=== PATIENT | female | born 1985 | race Caucasian/White ===

== ENCOUNTER 2021-06-18 00:20 | Inpatient (IN) ==
[2021-06-18] MEDS ORDERED: MAGNESIUM SULF RIDER 2 GM/50 ML PREMIX IV PRN (02:44)
[2021-06-18] MEDS ORDERED: ONDANSETRON 4 MG/2 ML VIAL IV PRN (02:44)
[2021-06-18] MEDS ORDERED: hydrALAZINE 20 MG/1 ML VIAL IV PRN (02:44)
[2021-06-18] MEDS ORDERED: GLUCAGON 1 MG VIAL IM PRN (02:44)
[2021-06-18] MEDS ORDERED: MAGNESIUM SULF RIDER 4 GM/100 ML PREMIX IV PRN (02:44)
[2021-06-18] MEDS ORDERED: DEXTROSE 10% 250 ML BAG IV PRN (03:52)
[2021-06-18 05:16] LABS: Bacteria,Urine Occasional /HPF (Few); Mucus,Urine Occasional /LPF (Occasional); RBC,Urine 1 /HPF (0-4); Squamous Epithelial Cell,Urine Occasional /HPF (0-10); Urine Appearance Clear (Clear); Urine Color Yellow (Yellow); Urine Specific Gravity 1.025 (1.001-1.035)
[2021-06-18 05:17] LABS: Bilirubin,Urine Negative (Negative); Blood, Urine Negative (Negative); Glucose,Urine (UA) 100 mg/dL (Negative); Ketones,Urine Negative (Negative); Nitrite,Urine Negative (Negative); Protein,Urine 30 mg/dL (Negative)
[2021-06-18 06:07] LABS: INR 1.1; PT Patient Result 12.4 SECS (10.5-12.0)
[2021-06-18 06:09] LABS: Basophils % 0.3 % (0.0-0.8); Eosinophils % 0.1 % (0.00-10.9); Hematocrit 36.6 VOL% (35.7-47.0); Hemoglobin 11.9 GM/DL (12.0-16.0); Immature Granulocytes % 0.7 %; Lymphocytes # 0.7 10*3/uL (1.4-4.0); Lymphocytes % 4.7 % (21.3-54.2); Mean Corpuscular HGB Conc 32.5 GM/DL (32-36); Mean Corpuscular Volume 78.4 FL (87-102); Monocytes % 6.3 % (1.7-12.7); Neutrophils % 87.9 % (38.7-73.9); Platelet Count 343 T/CUMM (130-400); Red Blood Count 4.67 MC/CUMM (3.8-5.5); Red Cell Distribution Width 17.2 % (9.3-17.3); White Blood Count 15.3 T/CUMM (4-12)
[2021-06-18 06:31] LABS: Hypochromia Slight; Lymphocytes 2 % (20-55); Microcytosis Slight; Platelet Estimate Adequate; Segmented Neutrophils 92 % (50-85); Total Cells Counted 100
[2021-06-18 06:33] LABS: Albumin 2.1 G/DL (3.4-5.0); Bilirubin,Total 0.7 MG/DL (0.20-1.00); Calcium 8.6 MG/DL (8.5-10.1); Osmolality,Calculated 267.2 MOS/KG (273-304); Risk Ratio 4.59; Thyroid Stimulating Hormone 2.03 uIU/ml (0.358-3.74); Total Protein 7.2 G/DL (6.4-8.2); VLDL Cholesterol 13.2 MG/DL
[2021-06-18 06:38] LABS: Potassium 2.2 MMOL/L (3.5-5.1)
[2021-06-18] MEDS: POTASSIUM CHLORIDE 20 MEQ TABLET PO PRN ×4 (06:43→13:20)
[2021-06-18 07:51] LABS: Barbiturates Screen,Urine Negative (Negative); Benzodiazepines Screen,Urine Negative (Negative); Cannabinoid Screen,Urine Negative (Negative); Opiate Screen,Urine Negative (Negative); Phencyclidine Screen,Urine Negative (Negative)
[2021-06-18] MEDS: PIPERACILLIN/TAZOBACTAM 3,375 MG in SODIUM CHLORIDE 0.9% 100 ML IV SCH ×2 (08:47→17:34)
[2021-06-18] MEDS: PANTOPRAZOLE 40 MG TABLET PO SCH (08:47)
[2021-06-18] MEDS: FUROSEMIDE 40 MG/4 ML VIAL IV SCH ×2 (08:47→17:33)
[2021-06-18] MEDS: SPIRONOLACTONE 25 MG TABLET PO SCH ×2 (08:50→20:38)
[2021-06-18] MEDS: DOCUSATE SODIUM 100 MG CAPSULE PO SCH ×2 (08:50→20:37)
[2021-06-18] MEDS: carvediloL 3.125 MG TABLET PO SCH ×2 (08:50→20:37)
[2021-06-18] MEDS ORDERED: LISINOPRIL/HCTZ 20-12.5 MG TABLET PO SCH (09:00)
[2021-06-19] MEDS: PIPERACILLIN/TAZOBACTAM 3,375 MG in SODIUM CHLORIDE 0.9% 100 ML IV SCH ×3 (00:13→17:03)
[2021-06-19 05:39] LABS: Basophils # 0.1 10*3/uL (0.0-0.2); Basophils % 0.4 % (0.0-0.8); Eosinophils # 0.1 10*3/uL (0.0-0.87); Eosinophils % 0.7 % (0.00-10.9); Hematocrit 35.2 VOL% (35.7-47.0); Hemoglobin 11.2 GM/DL (12.0-16.0); Immature Granulocytes % 0.4 %; Immature Granulocytes Absolute 0.06 #; Lymphocytes # 1.4 10*3/uL (1.4-4.0); Lymphocytes % 8.8 % (21.3-54.2); Mean Corpuscular HGB Conc 31.8 GM/DL (32-36); Mean Corpuscular Volume 78.4 FL (87-102); Mean Platelet Volume 9.9 FL (9.6-12.0); Monocytes % 10.2 % (1.7-12.7); Neutrophils % 79.5 % (38.7-73.9); Platelet Count 349 T/CUMM (130-400); Red Blood Count 4.49 MC/CUMM (3.8-5.5); Red Cell Distribution Width 17.6 % (9.3-17.3); White Blood Count 15.9 T/CUMM (4-12)
[2021-06-19 05:59] LABS: Calcium 8.3 MG/DL (8.5-10.1); Osmolality,Calculated 267.4 MOS/KG (273-304)
[2021-06-19 06:01] LABS: Potassium 2.2 MMOL/L (3.5-5.1)
[2021-06-19 06:03] LABS: Albumin 1.5 G/DL (3.4-5.0); Bilirubin,Total 0.6 MG/DL (0.20-1.00); Calcium 8.4 MG/DL (8.5-10.1); Osmolality,Calculated 269.2 MOS/KG (273-304); Total Protein 5.9 G/DL (6.4-8.2)
[2021-06-19 06:05] LABS: Potassium 2.2 MMOL/L (3.5-5.1)
[2021-06-19] MEDS: POTASSIUM CHLORIDE RIDER 10 MEQ/100 ML PREMIX IV PRN ×4 (06:13→12:31)
[2021-06-19] MEDS: POTASSIUM CHLORIDE 20 MEQ TABLET PO SCH ×2 (06:36→10:35)
[2021-06-19] MEDS ORDERED: POTASSIUM CHLORIDE 20 MEQ TABLET PO SCH (09:00)
[2021-06-19] MEDS: PANTOPRAZOLE 40 MG TABLET PO SCH (10:35)
[2021-06-19] MEDS: DOCUSATE SODIUM 100 MG CAPSULE PO SCH ×2 (10:35→21:29)
[2021-06-19] MEDS: SPIRONOLACTONE 25 MG TABLET PO SCH ×2 (10:35→21:29)
[2021-06-19] MEDS: carvediloL 3.125 MG TABLET PO SCH ×2 (10:36→21:29)
[2021-06-19] MEDS: ACETAMINOPHEN 325 MG TABLET PO PRN (17:03)
[2021-06-20] MEDS: PIPERACILLIN/TAZOBACTAM 3,375 MG in SODIUM CHLORIDE 0.9% 100 ML IV SCH ×3 (00:02→16:08)
[2021-06-20 05:23] LABS: Basophils # 0.1 10*3/uL (0.0-0.2); Basophils % 0.4 % (0.0-0.8); Eosinophils # 0.2 10*3/uL (0.0-0.87); Eosinophils % 1.2 % (0.00-10.9); Hematocrit 34.4 VOL% (35.7-47.0); Hemoglobin 10.6 GM/DL (12.0-16.0); Immature Granulocytes % 0.8 %; Immature Granulocytes Absolute 0.13 #; Lymphocytes # 1.6 10*3/uL (1.4-4.0); Lymphocytes % 9.6 % (21.3-54.2); Mean Corpuscular HGB Conc 30.8 GM/DL (32-36); Mean Corpuscular Volume 79.6 FL (87-102); Monocytes % 8.7 % (1.7-12.7); Neutrophils % 79.3 % (38.7-73.9); Platelet Count 398 T/CUMM (130-400); Red Blood Count 4.32 MC/CUMM (3.8-5.5); Red Cell Distribution Width 17.8 % (9.3-17.3); White Blood Count 16.1 T/CUMM (4-12)
[2021-06-20 05:54] LABS: Calcium 7.9 MG/DL (8.5-10.1); Osmolality,Calculated 271.1 MOS/KG (273-304); Potassium 3.2 MMOL/L (3.5-5.1)
[2021-06-20] MEDS ORDERED: VANCOMYCIN INJ 1,000 MG in SODIUM CHLORIDE 0.9% 250 ML IV ONE (08:34)
[2021-06-20 09:03] LABS: % Iron Saturation 6.5 % (18-50); Ferritin 190.5 ng/mL (8-252)
[2021-06-20 09:04] LABS: Folate 5.59 NG/ML (5.38-24.0)
[2021-06-20] MEDS: PANTOPRAZOLE 40 MG TABLET PO SCH (10:46)
[2021-06-20] MEDS: SPIRONOLACTONE 25 MG TABLET PO SCH ×2 (10:46→20:52)
[2021-06-20] MEDS: DOCUSATE SODIUM 100 MG CAPSULE PO SCH ×2 (10:47→20:52)
[2021-06-20] MEDS: POTASSIUM CHLORIDE 20 MEQ TABLET PO SCH (10:47)
[2021-06-20] MEDS: carvediloL 3.125 MG TABLET PO SCH ×2 (10:47→20:52)
[2021-06-20] MEDS: ENOXAPARIN 40 MG/0.4 ML SYRINGE SUBCUT SCH (10:48)
[2021-06-20] MEDS: FERROUS SULFATE 325 MG TABLET PO SCH (20:52)
[2021-06-20] MEDS: ACETAMINOPHEN 325 MG TABLET PO PRN (23:18)
[2021-06-21] MEDS: PIPERACILLIN/TAZOBACTAM 3,375 MG in SODIUM CHLORIDE 0.9% 100 ML IV SCH ×3 (00:30→18:06)
[2021-06-21 04:26] LABS: Basophils # 0.1 10*3/uL (0.0-0.2); Basophils % 0.6 % (0.0-0.8); Eosinophils # 0.3 10*3/uL (0.0-0.87); Eosinophils % 1.9 % (0.00-10.9); Hematocrit 35.6 VOL% (35.7-47.0); Hemoglobin 11.1 GM/DL (12.0-16.0); Immature Granulocytes % 0.7 %; Lymphocytes # 1.8 10*3/uL (1.4-4.0); Lymphocytes % 11.4 % (21.3-54.2); Mean Corpuscular HGB Conc 31.2 GM/DL (32-36); Mean Corpuscular Volume 79.5 FL (87-102); Mean Platelet Volume 9.4 FL (9.6-12.0); Monocytes % 7.8 % (1.7-12.7); Neutrophils % 77.6 % (38.7-73.9); Platelet Count 427 T/CUMM (130-400); Red Blood Count 4.48 MC/CUMM (3.8-5.5); Red Cell Distribution Width 18.1 % (9.3-17.3); White Blood Count 15.3 T/CUMM (4-12)
[2021-06-21 04:50] LABS: Calcium 8.5 MG/DL (8.5-10.1); Potassium 4.1 MMOL/L (3.5-5.1)
[2021-06-21] MEDS: ACETAMINOPHEN 325 MG TABLET PO PRN ×3 (07:58→23:27)
[2021-06-21] MEDS: FUROSEMIDE 40 MG TABLET PO SCH (09:51)
[2021-06-21] MEDS: POTASSIUM CHLORIDE 20 MEQ TABLET PO SCH (09:51)
[2021-06-21] MEDS: PANTOPRAZOLE 40 MG TABLET PO SCH (09:51)
[2021-06-21] MEDS: DOCUSATE SODIUM 100 MG CAPSULE PO SCH ×2 (09:51→21:23)
[2021-06-21] MEDS: SPIRONOLACTONE 25 MG TABLET PO SCH ×2 (09:52→21:23)
[2021-06-21] MEDS: FERROUS SULFATE 325 MG TABLET PO SCH ×2 (09:52→21:23)
[2021-06-21] MEDS: carvediloL 3.125 MG TABLET PO SCH ×2 (09:52→21:23)
[2021-06-21] MEDS: ENOXAPARIN 40 MG/0.4 ML SYRINGE SUBCUT SCH (09:52)
[2021-06-21] MEDS: VANCOMYCIN INJ 1,000 MG in SODIUM CHLORIDE 0.9% 250 ML IV SCH ×2 (14:06→23:27)
[2021-06-22] MEDS: PIPERACILLIN/TAZOBACTAM 3,375 MG in SODIUM CHLORIDE 0.9% 100 ML IV SCH ×3 (00:58→17:55)
[2021-06-22 05:07] LABS: Basophils # 0.1 10*3/uL (0.0-0.2); Basophils % 0.6 % (0.0-0.8); Eosinophils # 0.4 10*3/uL (0.0-0.87); Eosinophils % 2.9 % (0.00-10.9); Hematocrit 34.7 VOL% (35.7-47.0); Hemoglobin 10.7 GM/DL (12.0-16.0); Immature Granulocytes % 0.9 %; Immature Granulocytes Absolute 0.12 #; Lymphocytes # 1.7 10*3/uL (1.4-4.0); Lymphocytes % 11.9 % (21.3-54.2); Mean Corpuscular HGB Conc 30.8 GM/DL (32-36); Mean Corpuscular Volume 80.3 FL (87-102); Mean Platelet Volume 9.3 FL (9.6-12.0); Monocytes % 7.5 % (1.7-12.7); Neutrophils % 76.2 % (38.7-73.9); Platelet Count 459 T/CUMM (130-400); Red Blood Count 4.32 MC/CUMM (3.8-5.5); Red Cell Distribution Width 18.3 % (9.3-17.3); White Blood Count 13.9 T/CUMM (4-12)
[2021-06-22 05:36] LABS: Calcium 8.5 MG/DL (8.5-10.1); Osmolality,Calculated 274.8 MOS/KG (273-304); Potassium 4.1 MMOL/L (3.5-5.1)
[2021-06-22] MEDS: ACETAMINOPHEN 325 MG TABLET PO PRN ×2 (09:50→20:03)
[2021-06-22] MEDS: PANTOPRAZOLE 40 MG TABLET PO SCH (09:53)
[2021-06-22] MEDS: FUROSEMIDE 40 MG TABLET PO SCH (09:53)
[2021-06-22] MEDS: DOCUSATE SODIUM 100 MG CAPSULE PO SCH ×2 (09:54→20:46)
[2021-06-22] MEDS: FERROUS SULFATE 325 MG TABLET PO SCH ×2 (09:54→20:47)
[2021-06-22] MEDS: carvediloL 3.125 MG TABLET PO SCH ×2 (09:55→20:46)
[2021-06-22] MEDS: SPIRONOLACTONE 25 MG TABLET PO SCH ×2 (09:55→20:46)
[2021-06-22] MEDS: ENOXAPARIN 40 MG/0.4 ML SYRINGE SUBCUT SCH (09:58)
[2021-06-22] MEDS: POTASSIUM CHLORIDE 20 MEQ TABLET PO SCH (10:03)
[2021-06-22] MEDS: VANCOMYCIN INJ 1,000 MG in SODIUM CHLORIDE 0.9% 250 ML IV SCH (15:12)
[2021-06-23] MEDS: VANCOMYCIN INJ 1,000 MG in SODIUM CHLORIDE 0.9% 250 ML IV SCH (01:20)
[2021-06-23] MEDS: PIPERACILLIN/TAZOBACTAM 3,375 MG in SODIUM CHLORIDE 0.9% 100 ML IV SCH ×3 (01:20→16:56)
[2021-06-23 05:15] LABS: Basophils # 0.1 10*3/uL (0.0-0.2); Basophils % 0.6 % (0.0-0.8); Eosinophils # 0.5 10*3/uL (0.0-0.87); Immature Granulocytes Absolute 0.17 #; Lymphocytes # 1.6 10*3/uL (1.4-4.0); Mean Corpuscular HGB Conc 31.4 GM/DL (32-36); Mean Corpuscular Volume 79.2 FL (87-102); Mean Platelet Volume 9.2 FL (9.6-12.0); Monocytes % 5.5 % (1.7-12.7); Neutrophils % 79.9 % (38.7-73.9); Platelet Count 538 T/CUMM (130-400); Red Blood Count 4.42 MC/CUMM (3.8-5.5); Red Cell Distribution Width 18.4 % (9.3-17.3); White Blood Count 16.4 T/CUMM (4-12)
[2021-06-23 05:34] LABS: Calcium 8.8 MG/DL (8.5-10.1); Osmolality,Calculated 271.1 MOS/KG (273-304); Potassium 4.3 MMOL/L (3.5-5.1)
[2021-06-23] MEDS: PANTOPRAZOLE 40 MG TABLET PO SCH (08:36)
[2021-06-23] MEDS: SPIRONOLACTONE 25 MG TABLET PO SCH ×2 (08:36→20:42)
[2021-06-23] MEDS: DOCUSATE SODIUM 100 MG CAPSULE PO SCH ×2 (08:36→20:42)
[2021-06-23] MEDS: FUROSEMIDE 40 MG TABLET PO SCH (08:36)
[2021-06-23] MEDS: FERROUS SULFATE 325 MG TABLET PO SCH ×2 (08:36→20:43)
[2021-06-23] MEDS: carvediloL 3.125 MG TABLET PO SCH ×2 (08:36→20:42)
[2021-06-23] MEDS: ENOXAPARIN 40 MG/0.4 ML SYRINGE SUBCUT SCH (08:42)
[2021-06-23] MEDS: POTASSIUM CHLORIDE 20 MEQ TABLET PO SCH (09:41)
[2021-06-23] MEDS: CLINDAMYCIN INJ 600 MG/50 ML PREMIX IV SCH ×2 (14:30→21:35)
[2021-06-23] MEDS: ACETAMINOPHEN 325 MG TABLET PO PRN (20:42)
[2021-06-24] MEDS: PIPERACILLIN/TAZOBACTAM 3,375 MG in SODIUM CHLORIDE 0.9% 100 ML IV SCH ×2 (00:36→09:38)
[2021-06-24] MEDS: CLINDAMYCIN INJ 600 MG/50 ML PREMIX IV SCH (03:45)
[2021-06-24 05:14] LABS: Basophils # 0.1 10*3/uL (0.0-0.2); Basophils % 0.7 % (0.0-0.8); Eosinophils # 0.4 10*3/uL (0.0-0.87); Eosinophils % 2.5 % (0.00-10.9); Hematocrit 36.1 VOL% (35.7-47.0); Hemoglobin 11.3 GM/DL (12.0-16.0); Immature Granulocytes % 1.3 %; Immature Granulocytes Absolute 0.21 #; Lymphocytes # 1.6 10*3/uL (1.4-4.0); Lymphocytes % 9.4 % (21.3-54.2); Mean Corpuscular HGB Conc 31.3 GM/DL (32-36); Mean Corpuscular Volume 79.9 FL (87-102); Mean Platelet Volume 9.2 FL (9.6-12.0); Monocytes % 5.2 % (1.7-12.7); Neutrophils % 80.9 % (38.7-73.9); Platelet Count 553 T/CUMM (130-400); Red Blood Count 4.52 MC/CUMM (3.8-5.5); Red Cell Distribution Width 18.7 % (9.3-17.3); White Blood Count 16.6 T/CUMM (4-12)
[2021-06-24 05:26] LABS: Calcium 8.9 MG/DL (8.5-10.1); Potassium 4.3 MMOL/L (3.5-5.1)
[2021-06-24] MEDS: POTASSIUM CHLORIDE 20 MEQ TABLET PO SCH (09:32)
[2021-06-24] MEDS: SPIRONOLACTONE 25 MG TABLET PO SCH (09:32)
[2021-06-24] MEDS: FERROUS SULFATE 325 MG TABLET PO SCH (09:32)
[2021-06-24] MEDS: carvediloL 3.125 MG TABLET PO SCH (09:32)
[2021-06-24] MEDS: DOCUSATE SODIUM 100 MG CAPSULE PO SCH (09:33)
[2021-06-24] MEDS: FUROSEMIDE 40 MG TABLET PO SCH (09:33)
[2021-06-24] MEDS: PANTOPRAZOLE 40 MG TABLET PO SCH (09:33)
[2021-06-24] MEDS: ENOXAPARIN 40 MG/0.4 ML SYRINGE SUBCUT SCH (10:15)
[2021-06-24] MEDS: ACETAMINOPHEN 325 MG TABLET PO PRN (12:39)
[2021-06-24 14:19] VITALS: BP 146/88
== END 2021-06-24 13:50 | disposition home or self-care (01) | DRG 177 ==
LOC: N.TELEN 00:56 → SUATTDRO 02:24
PROVIDERS: ADMIT Internal Medicine; ATTEND Internal Medicine